=== PATIENT | female | born 2000 | race American Indian/Alaskan Native ===

== ENCOUNTER 2020-11-12 01:18 | Emergency (ER) | payer MEDICAID ==
[2020-11-12] MEDS ORDERED: ZIPRASIDONE MESYLATE 20 MG VIAL IM ONE ×2 (01:23→01:33)
[2020-11-12] MEDS ORDERED: LORazepam 2 MG/ML VIAL ONE (01:23)
[2020-11-12] MEDS ORDERED: WATER FOR INJ Sterile (PF) 10 ML ONE (01:24)
[2020-11-12] MEDS ORDERED: SODIUM CHLORIDE 0.9% 1000 ML 1,000 ML IV ONE ×2 (01:33→22:07)
--- NOTE | 2020-11-12 01:33 | Emergency Department Report ---
ED Psych HPI - General Chief Complaint: Psych Stated Complaint: MH Time Seen by Provider: 11/12/20 01:18 Source: family Mode of arrival: Wheelchair Limitations: Altered Mental Status - History of Present Illness Initial Comments: Patient is a 20-year-old female that presents emergency room for medical evaluation. Mother at bedside. Mother states that the patient has been talking in tongues and gibberish for about 4 hours. Mother states the patient has been doing any diet in a water fast for the past 3 days. Mother states that tonight she began to have odd behaviors. Mother states that she called the crisis line and they told her to come to the hospital for medical clearance and possible psychiatric evaluation. Mother states that the patient has never acted this way. Mother states patient has no allergies. Mother states that the patient has no past medical psychiatric or medical history. I tried to interview the patient and the patient she has talking gibberish and unable to understand the patient. Patient is not answering questions. MD Complaint: altered mental status -: Sudden Associated Psychiatric Symptoms: none History of same: No - Related Data Allergies Allergy/AdvReac Type Severity Reaction Status Date / Time No Known Allergies Allergy Unverified 11/12/20 02:23 ED Review of Systems ROS: Stated complaint: MH Other details as noted in HPI Comment: Unobtainable due to pts medical conditions ED Physical Exam - General Limitations: Altered Mental Status General appearance: anxious - Head Head exam: Present: atraumatic, normocephalic - Eye Eye exam: Present: normal appearance, PERRL Pupils: Present: normal accommodation - ENT ENT exam: Present: mucous membranes dry - Neck Neck exam: Present: normal inspection. Absent: tenderness - Respiratory Respiratory exam: Present: normal lung sounds bilaterally. Absent: respiratory distress, wheezes, rales, rhonchi - Cardiovascular Cardiovascular Exam: Present: regular rate, normal rhythm - GI/Abdominal GI/Abdominal exam: Present: soft, normal bowel sounds. Absent: distended, tenderness, guarding - Rectal Rectal exam: Present: deferred - Extremities Exam Extremities exam: Present: normal inspection - Back Exam Back exam: Present: normal inspection - Neurological Exam Neurological exam: Present: altered - Psychiatric Psychiatric exam: Present: agitated, anxious - Expanded Psychiatric Exam Expanded Focused psych exam: Present: pressured speech, internal stimuli, psychomotor agitation - Skin Skin exam: Present: warm, dry, intact, normal color. Absent: rash ED Course Vital Signs 11/12/20 11/12/20 01:36 01:45 Temperature 97.1 F L Pulse Rate 156 H Respiratory 32 H 30 H Rate Blood Pressure 129/101 O2 Sat by Pulse 92 Oximetry - Reevaluation(s) Reevaluation #1: Initial valuation, patient still uncontrollable and cannot be calm down. Patient will be given medications. 11/12/20 00:25 Reevaluation #2: Patient is resting comfortably. Patient's agitation and agitation has resolved. Heart rate is improving. 11/12/20 02:07 Reevaluation #3: Patient is resting. Patient placed on a 1013. Patient is medically cleared. Patient's not have any metabolic reason for this psychosis. Patient's final di sposition will come from our psychiatry team. 11/12/20 04:02 ED Medical Decision Making - Lab Data Result diagrams: 11/12/20 01:47 11/12/20 01:47 - Radiology Data Radiology results: report reviewed, image reviewed interpreted by me: Chest x-ray: No pneumonia, no pneumothorax, no foreign body, no osseous findings, no acute findings CT head without contrast INDICATION : Medical Clearance Psych, Altered Mental Status. TECHNIQUE: Axial imaging performed from the skull apex through the skull base without the use of contrast. All CT scans at this location are performed using CT dose reduction for ALARA by means of automated exposure control. COMPARISON: None FINDINGS: Parenchyma: No acute intracranial hemorrhage or parenchymal abnormality. Ventricles: Ventricles are normal in size and appear symmetric. Soft tissues: Soft tissues including the orbits appear normal. Bones: No acute osseous abnormality. Sinuses: Sinuses and mastoid air cells are clear. IMPRESSION: No acute abnormality. CHEST 1 VIEW INDICATION: AMS. COMPARISON: None FINDINGS: SUPPORT DEVICES: None. HEART: Within normal limits. LUNGS/PLEURA: No acute air space or interstitial disease. ADDITIONAL FINDINGS: None. IMPRESSION: 1. No acute findings. - Medical Decision Making Patient is a 20-year-old female that presents emergency room for acute psychosis, internal stimulus, agitation, talking in tongues and gibberish. Patient brought in by her family. Patient's mother is at bedside initially. Patient unable to give history. Patient's history given tomorrow per family and the mother. Patient had labs done which were essentially unremarkable. Patient has clinical findings consistent with acute psychosis with psychotic symptoms. Patient placed on a 05/01/2018 after the patient was medically cleared. Patient after initial evaluation was given Geodon, Ativan and Benadryl. Patient responded well to treatment. Patient became calm. Patient was monitored throu ghout her time in the ER until patient was medically cleared. Patient's heart was initially high and tachycardic. Patient given medications and the patient's heart rate improved. Patient is medically cleared. Patient's final disposition will come from our psychiatry team and our mental health team. - Differential Diagnosis Acute psychosis, metabolic encephalopathy, ICH, dehydration, UTI Critical care attestation.: If time is entered above; I have spent that time in minutes in the direct care of this critically ill patient, excluding procedure time. ED Disposition Clinical Impression: Acute psychosis Altered mental state Qualifiers: Altered mental status type: unspecified Qualified Code(s): R41.82 - Altered mental status, unspecified Disposition: [id number]/TX-[id number] PSY HOSP/PSY UNIT Is pt being admited?: No Does the pt Need Aspirin: No Condition: Stable Time of Disposition: 04:02
[2020-11-12] MEDS ORDERED: diphenhydrAMINE 50 MG/ML VIAL ONE (01:41)
[2020-11-12 02:05] LABS: Basophils # (Auto) 0.1 K/mm3 (0.0-0.1); Basophils % (Auto) 0.3 % (0.0-1.8); Hematocrit 33.6 % (30.3-42.9); Hemoglobin 11.4 gm/dl (10.1-14.3); Lymphocytes # (Auto) 1.3 K/mm3 (1.2-5.4); Lymphocytes % (Auto) 7.6 % (13.4-35.0); Mean Corpuscular HGB Conc 34 % (30-34); Mean Corpuscular Volume 87 fl (79-97); Monocytes # (Auto) 1.6 K/mm3 (0.0-0.8); Monocytes % (Auto) 9.6 % (0.0-7.3); Platelet Count 310 K/mm3 (140-440); Red Blood Count 3.89 M/mm3 (3.65-5.03); Red Cell Distribution Width 14.3 % (13.2-15.2)
[2020-11-12] MEDS ORDERED: diphenhydrAMINE 50 MG/ML VIAL IM ONE (02:05)
[2020-11-12] MEDS ORDERED: LORazepam 2 MG/ML VIAL IM ONE (02:05)
[2020-11-12 02:25] LABS: Alanine Aminotransferase 12 units/L (7-56); Albumin 4.9 g/dL (3.9-5); BUN/Creatinine Ratio 11; Blood Urea Nitrogen 14 mg/dL (7-17); Calcium 9.9 mg/dL (8.4-10.2); Hemolysis Index 33
--- NOTE | 2020-11-12 02:47 | XRay Report ---
CHEST 1 VIEW INDICATION: AMS. COMPARISON: None FINDINGS: SUPPORT DEVICES: None. HEART: Within normal limits. LUNGS/PLEURA: No acute air space or interstitial disease. ADDITIONAL FINDINGS: None. IMPRESSION: 1. No acute findings. Signer Name: Julio Cesar Gamino MD Signed: 11/12/2020 2:43 AM Workstation Name: [id number]
--- NOTE | 2020-11-12 03:40 | Cat Scan Report ---
CT head without contrast INDICATION : Medical Clearance Psych, Altered Mental Status. TECHNIQUE: Axial imaging performed from the skull apex through the skull base without the use of con trast. All CT scans at this location are performed using CT dose reduction for ALARA by means of aut omated exposure control. COMPARISON: None FINDINGS: Parenchyma: No acute intracranial hemorrhage or parenchymal abnormality. Ventricles: Ventricles are normal in size and appear symmetric. Soft tissues: Soft tissues including the orbits appear normal. Bones: No acute osseous abnormality. Sinuses: Sinuses and mastoid air cells are clear. IMPRESSION: No acute abnormality. Signer Name: Julio Cesar Gamino MD Signed: 11/12/2020 3:36 AM Workstation Name: [id number]
[2020-11-12 06:26] LABS: Cannabinoid Screen,Urine PRESUMPTIVE POSITIVE
[2020-11-12 06:31] LABS: Bilirubin,Urine NEG (Negative); Blood,Urine NEG (Negative); Color,Urine Yellow (Yellow); Hyaline Casts,Urine 1 /LPF; Mucus,Urine FEW /HPF; Protein,Urine <15 mg/dL mg/dL (Negative); RBC,Urine < 1.0 /HPF (0.0-6.0); Urobilinogen,Urine < 2.0 mg/dL (<2.0)
[2020-11-12 07:41] LABS: Amphetamine Screen,Urine PRESUMPTIVE NEGATIVE; Benzodiazepines Screen,Urine PRESUMPTIVE NEGATIVE; Cocaine Screen,Urine PRESUMPTIVE NEGATIVE; Methadone Screen,Urine PRESUMPTIVE NEGATIVE; Opiate Screen,Urine PRESUMPTIVE NEGATIVE
--- NOTE | 2020-11-12 09:42 | Consultation ---
History of Present Illness - Reason for Consult Consult date: 11/12/20 Reason for consult: AMS - History of Present Psychiatric Illness PER ER Note: Patient is a 20-year-old female that presents emergency room for medical evaluation. Mother at bedside. Mother states that the patient has been talking in tongues and gibberish for about 4 hours. Mother states the patient has been doing any diet in a water fast for the past 3 days. Mother states that tonight she began to have odd behaviors. Mother states that she called the crisis line and they told her to come to the hospital for medical clearance and possible psychiatric evaluation. Mother states that the patient has never acted this way. Mother states patient has no allergies. Mother states that the patient has no past medical psychiatric or medical history. I tried to interview the patient and the patient she has talking gibberish and unable to understand the patient. Patient is not answering questions. I attempted to assess the patient today. She is lying down asleep. The patient arouses but quickly drifts back to sleep after multiple attempts to arouse her by both verbal and tactile stimuli. The nurse and sitter caring for the patient today, state that the patient has only been sleeping and will now talk to anyone. PAST PSYCHIATRIC HISTORY: Unable to obtain (none according to mom per ER note) PAST MEDICAL HISTORY: None reported Family Psychiatric History: None reported or documented SOCIAL HISTORY Unable to obtain from the patient REVIEW OF SYSTEMS Unable to obtain from the patient MENTAL STATUS EXAMINATION Unable to obtain Assessment and Plan (1) Acute Psychosis Current Visit: Yes Status: Acute Treatment Plan Olanzapine 2.5mg po daily Sitter: defer to primary Medical: Per primary Disposition: Recommend acute psychiatric inpatient Will follow until transferred or improved enough to discharge Thank you for this consult Case staffed with Dr. Quinones Medications and Allergies Allergies Allergy/AdvReac Type Severity Reaction Status Date / Time No Known Allergies Allergy Unverified 11/12/20 02:23 Mental Status Exam - Vital signs Last Vital Signs Temp 98 F 11/12/20 08:03 Pulse 95 H 11/12/20 05:30 Resp 15 11/12/20 05:30 BP 103/56 11/12/20 05:30 Pulse Ox 100 11/12/20 08:03 Results Result Diagrams: 11/12/20 01:47 11/12/20 01:47 Abnormal lab results 11/12/20 11/12/20 11/12/20 Range/Units 01:47 01:47 01:47 WBC 16.7 H (4.5-11.0) K/mm3 Lymph % (Auto) 7.6 L (13.4-35.0) % [place] % (Auto) 9.6 H (0.0-7.3) % [place] # (Auto) 1.6 H (0.0-0.8) K/mm3 Seg Neutrophils % 82.5 H (40.0-70.0) % Seg Neutrophils # 13.7 H (1.8-7.7) K/mm3 Carbon Dioxide 16 L (22-30) mmol/L Creatinine 1.3 H (0.6-1.2) mg/dL Glucose 129 H (65-100) mg/dL AST 42 H (5-40) units/L Salicylates < 0.3 L (2.8-20.0) mg/dL Acetaminophen (10.0-30.0) ug/mL 11/12/20 Range/Units 01:47 WBC (4.5-11.0) K/mm3 Lymph % (Auto) (13.4-35.0) % [place] % (Auto) (0.0-7.3) % [place] # (Auto) (0.0-0.8) K/mm3 Seg Neutrophils % (40.0-70.0) % Seg Neutrophils # (1.8-7.7) K/mm3 Carbon Dioxide (22-30) mmol/L Creatinine (0.6-1.2) mg/dL Glucose (65-100) mg/dL AST (5-40) units/L Salicylates (2.8-20.0) mg/dL Acetaminophen 5.0 L (10.0-30.0) ug/mL All other labs normal.
--- NOTE | 2020-11-12 11:02 | Event Note ---
S: Patient mumbles her name with much prompting. O: Sedated, stable vital signs A: Acute jonel versus acute psychosis P: Patient is medically clear for psychiatric care, I have reviewed labs obtained. I reviewed vital signs. I examined the patient. Mental health team has recommended inpatient stabilization and observation while patient is medicated here in the emergency department
[2020-11-13 01:36] LABS: Basophils # (Auto) 0.1 K/mm3 (0.0-0.1); Basophils % (Auto) 0.5 % (0.0-1.8); Eosinophils % (Auto) 0.2 % (0.0-4.3); Hematocrit 35.8 % (30.3-42.9); Lymphocytes # (Auto) 3.5 K/mm3 (1.2-5.4); Lymphocytes % (Auto) 31.1 % (13.4-35.0); Mean Corpuscular HGB Conc 34 % (30-34); Mean Corpuscular Volume 87 fl (79-97); Monocytes # (Auto) 1.3 K/mm3 (0.0-0.8); Monocytes % (Auto) 11.4 % (0.0-7.3); Platelet Count 233 K/mm3 (140-440); Red Blood Count 4.11 M/mm3 (3.65-5.03); Red Cell Distribution Width 14.2 % (13.2-15.2)
[2020-11-13 08:46] VITALS: BP 130/78
--- NOTE | 2020-11-13 10:53 | Progress Note ---
Subjective - Reason for Consult Consult date: 11/13/20 Reason for consult: psychosis - Chief Complaint Chief complaint: The patient was seen today, she is awake and lucid today. The patient is also calm and cooperative. Her disposition is quiet. She apologized for not speaking to me yesterday. The patient says she's not sure what happened the other day, but states that she was very anxious. She says "my family called the crisis line and wanted someone to see me." She says "they never intended for me to be here." The patient denies SI/HI or hallucinations of any kind. She says "no I never wanted to hurt myself or anyone." She also denies any fear of endangerment. The patient says "I feel better, but I would feel much better at home." Spoke to mom concerning the patient and explained treatment plan. Mom understands and agrees with it. She was appreciative of the care Gómez has been getting. Mom says she is comfortable with Gómez being discharged home to her care. She says Gómez is naturally quiet and soft spoken. REVIEW OF SYSTEMS Constitutional: Negative for weight loss ENT: Negative for stridor Respiratory: Negative for cough or hemoptysis All other systems reviewed and are negative MENTAL STATUS EXAMINATION General Appearance and Behavior: Age appropriate, good hygiene, not wearing appropriate clothes, good eye contact, quiet Cooperation: Participating, uncooperative at times Psychomotor Behavior: Psychomotor normal Mood: "better" Affect and affective range: Congruent with stated mood Thought Process: goal directed Speech: Normal tone and pace, nonsensical Thought Content Suicidal Ideation: Denies Homicidal Ideation: Denies Hallucinations: Denies Delusions: None elicited Impulse Control: Limited Insight and Judgment: Limited insight and judgment Memory: Limited Attention: Undivided attention impaired Orientation: A/o x 3 Assessment and Plan (1) Acute Psychosis Current Visit: Yes Status: Acute Treatment Plan d/c 1013 Olanzapine 2.5mg po daily Sitter: Defer to primary Medical: Per primary Disposition: Do not recommend acute psychiatric inpatient. Mom and patient understand that if any thoughts or feelings of endangerment arise they are to seek immediate assistance including but not limited to 911/ER, crisis hotline The patient is to follow up with outpatient psych in 7 to 14 days upon discharge The battery charger tester to give the patient safety plan, outpatient resources including CBT Will sign off. Case staffed with Dr. Quinones Mental Status Exam - Vital signs Last Vital Signs Temp 98.0 F 11/13/20 08:45 Pulse 80 11/13/20 08:45 Resp 18 11/13/20 08:45 BP 130/78 11/13/20 08:45 Pulse Ox 98 11/13/20 08:45
--- NOTE | 2020-11-13 10:56 | Event Note ---
Date: 11/13/20 Vital Signs - 24 hr 11/12/20 11/12/20 11/13/20 17:40 19:52 01:10 Temperature 99.2 F 99.2 F 98.1 F Pulse Rate 107 H 98 H 72 Respiratory 18 18 16 Rate Blood Pressure 123/82 122/58 121/64 [Right] O2 Sat by Pulse 100 100 100 Oximetry 11/13/20 08:45 Temperature 98.0 F Pulse Rate 80 Respiratory 18 Rate Blood Pressure 130/78 [Right] O2 Sat by Pulse 98 Oximetry This patient was initially seen here yesterday, 11/12/2020, and placed on an ED hold and 1013 for acute psychosis. She was seen yesterday by the psychiatric team who agrees with the plan and path for inpatient stabilization. Patient's labs were mostly unremarkable except for a mild leukocytosis of 14,000. She had a chest x-ray that did not show any pneumonia or any other acute process. Patient had a CT scan of the head that did not show any hemorrhage, large vessel occlusion, or any other acute process. A repeat CBC was done this morning and the white blood cell count is down to about 11,000. Vital signs, listed above, have been reassuring throughout her ED course including being afebrile and no hypoxia. It does not appear that the patient has any known ill medications that need to be reconciled. We will continue to monitor this patient during her ED course.
== END 2020-11-13 12:59 | disposition home or self-care (01) ==
LOC: ED 01:18
DX: F23 Brief psychotic disorder (principal); Z20.822 Contact with and (suspected) exposure to COVID-19; R41.82 Altered mental status, unspecified
CPT/HCPCS: 36415; 70450; 71045; 80053; 80307; 81001; 84443; 84703; 85025; 96360; 96361; 96372; 99285; J1200; J2060; J3486; J7030; U0003; 80320; G0480